=== PATIENT | male | born 1955 | race Caucasian/White ===

== ENCOUNTER 2023-04-18 14:37 | Emergency (ER) | payer OTHER ==
[2023-04-18] MEDS ORDERED: Ketorolac 30 MG/ML SDV IM ONE (16:39)
[2023-04-18] MEDS ORDERED: Acetaminophen/HYDROcodone 325-5 MG Tab PO ONE (16:39)
== END 2023-04-18 17:49 | disposition home or self-care (01) ==
LOC: JP.ED 14:37
DX: M19.012 Primary osteoarthritis, left shoulder (principal); M75.102 Unspecified rotator cuff tear or rupture of left shoulder, not specified as traumatic; E78.00 Pure hypercholesterolemia, unspecified; Z72.0 Tobacco use; Z79.82 Long term (current) use of aspirin; Z79.899 Other long term (current) drug therapy
CPT/HCPCS: 73030-26-LT; 73030-LT; 99283